=== PATIENT | male | born 1950 | race Caucasian/White ===

== ENCOUNTER → 2023-02-24 09:54 | Outpatient (BNVA) | payer MEDICAID, SELFPAY | PROVIDERS: Visit Provider Nurse Practitioner Family | DX: M10.9 Gout, unspecified (principal); I10 Essential (primary) hypertension; E78.2 Mixed hyperlipidemia; Z12.5 Encounter for screening for malignant neoplasm of prostate; N40.0 Benign prostatic hyperplasia without lower urinary tract symptoms; E55.9 Vitamin D deficiency, unspecified | CPT/HCPCS: 80053; 80061; 82306; 84443; 84550; G0103 ==

== ENCOUNTER 2023-04-19 14:39 | Outpatient (CLI) | payer MEDICARE, MEDICAID, SELFPAY ==
--- NOTE | 2023-04-19 15:00 | CT_ITS ---
WS: [id number] CT ANGIOGRAPHY OF THE ABDOMINAL AORTA WITH RUNOFF TO THE ANKLES HISTORY: PVD with claudication TECHNIQUE: Arterial injection is performed during imaging to evaluate the aorta and runoff vessels to the ankles. MIP and volume rendering imaging has also been performed. All images are reviewed. All C T scans at [facility] use at least one of these dose optimization techniques: automated exposu re control; mA and/or kV adjustment per patient size (includes targeted exams where dose is matched t o clinical indication); or iterative reconstruction. Contrast: Omnipaque 350; 100 mL IV. DLP: 566.28 mGy.cm COMPARISON: None available. Abdominal aorta: Moderate atherosclerotic plaque. Calcified plaque and areas of intimal thickening. N o aneurysm. 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 Mild narrowing and plaque origin SMA. Mild a therosclerotic plaque renal arteries. Single accessory renal artery on the RIGHT. RIGHT lower extremity arterial system: Extensive calcified plaque continues into the common iliac art prachi. 50% stenosis proximal common iliac artery. Bifurcation is intact. Heavy calcification continues into the internal and external iliac arteries. Deep profunda is intact. Multifocal areas of calcified plaque throughout the femoral artery to the popliteal artery. At the knee the popliteal artery is ob scured by the knee prosthesis beam hardening artifact. Most significant stenosis in the proximal SFA near 50%. At the knee below the prosthesis the popliteal artery is patent. There is mild scattered pl aque throughout the arteries below the knee. The lumen of the arteries below the knee appears patent. There is good runoff to the ankle. LEFT lower extremity arterial system: Moderate calcification at the origin of the common iliac artery . Internal and external iliac arteries are intact. Femoral artery bifurcation is patent. Mild atheros clerotic plaque in the deep profunda. Mild atherosclerotic plaque within the SFA. Calcified plaque an d mild intimal thickening throughout its course. Slightly greater amount of plaque near Justice's michelle l. Stenosis less than 50%. Mild atherosclerosis popliteal artery. Tibioperoneal trunk is intact. Smal l caliber posterior tibial artery but it is patent. Good runoff to the ankle via 3 vessels. Severe chronic emphysema. Normal size heart. Early arterial phase imaging through the upper abdomen d emonstrates no abnormality. Mixing of contrast in the portal vein. Prior cholecystectomy. No renal ma ss or obstruction. No GI tract obstruction. Extensive diverticular burden throughout the distal colon . These degenerative changes throughout the lumbar spine. L4 anterolisthesis by [address]/CT angio abd aorta runof [id number] IMPRESSION: 1. Moderate atherosclerotic plaque throughout the abdominal aorta. No occlusio n or aneurysm. 2. 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 3. Extensive plaque bilaterally throughout the iliac arteries but no occlusion . 4. Proximal RIGHT common iliac artery stenosis 50%. 5. Proximal RIGHT SFA 50% stenosis. 6. LEFT femoral artery stenosis less than 50%. 7. Good runoff to the ankles bilaterally. Anterior and posterior tibial arteri es and peroneal artery intact. Small caliber LEFT CASTING CARRIER. 8. Chronic emphysema. 9. Extensive diverticular disease in the distal colon without acute diverticul itis.
[2023-04-19 15:18] LABS: Blood Urea Nitrogen 22 mg/dL (8-23)
[2023-04-19] MEDS: iohexol 350 mg/mL 500 mL Btl (per mL) IV (15:31)
--- NOTE | 2023-04-19 16:45 | USCV_ITS ---
Cachorro Tobias Age: 72 Gender: M : 1950 Exam Date: 04/19/2023 15:53 Ordering Phys: Mayra Landrum NP Technologist: Jag Barajas [place] [facility] [place]: near syncope, carotid stenosis Risk Factors: Previous Vascular Surgery: Right Brachial BP: / Left Brachial BP: / Right Left Velocity (cm/s) Spectral Plaque Velocity (cm/s) Spectral Plaque Syst/Diast Broadening Syst/Diast Broadening 95.90/ 14.30 Prox CCA 78.20 / 12.30 87.10/ 16.50 Mid CCA 80.80 / 17.90 84.90/ 23.20 Distal CCA 70.30 / 11.20 72.10/ 10.70 Prox ICA 42.70 / 14.40 94.80/ 20.50 Mid ICA 82.30 / 17.10 63.30/ 18.50 Distal ICA 52.80 / 17.30 251.90 ECA 195.80 1.09 ICA/CCA 1.02 Antegrade Vertebral Antegrade 34.70/ 9.60 cm/s 64.90/ 15.10 cm/s Tri Subclavian Bi 119.1 71.60 0 CONCLUSIONS Right ICA stenosis <50%. Mild atheromatous plaque right carotid bulb/ICA. Left ICA stenosis <50%. Mild atheromatous plaque left carotid bulb/ICA. Normal antegrade Doppler flow noted in the right vertebral artery. Normal antegrade Doppler flow noted in the left vertebral artery. David Seals MD (Electronically Signed) Final Date: 19 April 2023 16:37 S
== END 2023-04-19 14:40 | disposition home or self-care (01) ==
LOC: RAD 14:47
PROVIDERS: PCP Nurse Practitioner Family; Visit Provider Nurse Practitioner Family
DX: I65.23 Occlusion and stenosis of bilateral carotid arteries (principal); I70.0 Atherosclerosis of aorta; I70.213 Atherosclerosis of native arteries of extremities with intermittent claudication, bilateral legs; I70.8 Atherosclerosis of other arteries; J43.9 Emphysema, unspecified; K57.30 Diverticulosis of large intestine without perforation or abscess without bleeding
CPT/HCPCS: 75635; 80053; 80061; 82306; 82565; 84443; 84520; 84550; 93880; G0103; Q9967

== ENCOUNTER 2023-05-17 09:41 | Outpatient (CLI) | payer MEDICARE, MEDICAID, SELFPAY ==
--- NOTE | 2023-05-17 09:45 | US_ITS ---
WS: [id number] Exam: US soft tissue/extremity [id number] Date/Time of Exam: 05/17/2023 10:42 AM Reason For Exam: marble size lump left thigh The lateral left thigh region is targeted for ultrasound evaluation. A mildly hyperechoic ovoid area within the musculature noted along the lateral left thigh region. Thi s measures approximately 2 x 0.65 cm. There are 2 tiny cystic structures within both less than a cent imeter. There were no other discrete soft tissue mass is identified. Recommendations: If the patient does not respond to conservative management or this area begins to en large then contrast CT scanning of this area should be considered for more definitive evaluation. US/US soft tissue/extremity [id number] IMPRESSION: 1. Mildly hyperechoic ovoid area within the musculature noted along the lateral left thigh region. This area measures about 2 x 0.65 cm and contains 2 tiny cy stic areas. This may represent a contusion or hematoma of the musculature.
== END 2023-05-17 09:42 | disposition home or self-care (01) ==
PROVIDERS: PCP Nurse Practitioner Family; Visit Provider Nurse Practitioner Family
DX: R22.42 Localized swelling, mass and lump, left lower limb (principal)
CPT/HCPCS: 76882

== ENCOUNTER → 2023-05-25 15:07 | Outpatient (BNVA) | payer MEDICARE, MEDICAID, SELFPAY | PROVIDERS: PCP Nurse Practitioner Family; Visit Provider Internal Medicine Cardiovascular Disease | DX: R07.9 Chest pain, unspecified (principal); I45.10 Unspecified right bundle-branch block; I73.9 Peripheral vascular disease, unspecified; I25.10 Atherosclerotic heart disease of native coronary artery without angina pectoris; Z95.5 Presence of coronary angioplasty implant and graft; I10 Essential (primary) hypertension; Z87.891 Personal history of nicotine dependence; E78.2 Mixed hyperlipidemia | CPT/HCPCS: 93005; 99204 ==

== ENCOUNTER 2023-07-29 13:18 | Outpatient (CLI) | payer MEDICARE, MEDICAID, SELFPAY ==
--- NOTE | 2023-07-29 13:28 | XR_ITS ---
WS: [id number] Sacroiliac joints, 3 views, 07/29/2023 Clinical Data: pain low back left hip sciatica Comparison: None. Findings: The SI joints are normal in width. No erosion, sclerosis or destruction is seen. There are no fractur es or dislocations. The adjacent visualized pelvis and hips are unremarkable. Impression: Negative SI joints.
--- NOTE | 2023-07-29 13:28 | XR_ITS ---
WS: [id number] Left hip, AP and frog-leg views, 07/29/2023 Clinical Data: pain low back left hip sciatica Comparison: None. Findings: No fractures or dislocations are seen. The left hip shows no narrowing, erosion, sclerosis or fragmen tation of the left femoral head. The soft tissues are not remarkable. The adjacent pelvis is normal. Vascular calcification is seen. Impression: Negative left hip. Tonnis classification: grade 0: normal radiographs
--- NOTE | 2023-07-29 13:28 | XR_ITS ---
WS: [id number] Lumbar spine, 3 views, 07/29/2023 Clinical Data: pain low back left hip sciatica Comparison: None. Findings: No compression fractures or subluxation is seen. Degenerative disc narrowing is seen at all lumbar le vels along with abundant osteoarthritis. There is a slight dextroscoliosis. Transverse processes and SI joints are normal. There is calcification in the wall of the abdominal aorta but no aneurysm Impression: 1. Multilevel degenerative disc narrowing and osteoarthritis. 2. Slight dextroscoliosis.
== END 2023-07-29 13:19 | disposition home or self-care (01) ==
PROVIDERS: Visit Provider Nurse Practitioner Family
DX: M54.42 Lumbago with sciatica, left side (principal); M51.36 Other intervertebral disc degeneration, lumbar region; M41.86 Other forms of scoliosis, lumbar region
CPT/HCPCS: 72100; 72202; 73502

== ENCOUNTER 2023-07-30 06:00 | Outpatient (RCR) | payer MEDICARE, MEDICAID, SELFPAY | END 2023-07-31 23:59 | disposition home or self-care (01) | LOC: TPT 06:00 | PROVIDERS: Visit Provider Nurse Practitioner Family | DX: M54.42 Lumbago with sciatica, left side (principal) | CPT/HCPCS: 97162 ==

== ENCOUNTER 2023-08-01 06:00 | Outpatient (RCR) | payer MEDICARE, MEDICAID, SELFPAY | END 2023-08-31 23:59 | disposition home or self-care (01) | LOC: TPT 06:00 | PROVIDERS: Visit Provider Nurse Practitioner Family | DX: M54.42 Lumbago with sciatica, left side (principal) | CPT/HCPCS: 97110 ==

== ENCOUNTER → 2023-08-25 13:03 | Outpatient (BNVA) | payer MEDICARE, MEDICAID, SELFPAY | PROVIDERS: Visit Provider Nurse Practitioner Family | DX: I10 Essential (primary) hypertension; E78.2 Mixed hyperlipidemia; G62.9 Polyneuropathy, unspecified | CPT/HCPCS: 80053; 80061 ==

== ENCOUNTER → 2023-09-08 11:50 | Outpatient (BNVA) | payer MEDICARE, MEDICAID, SELFPAY | PROVIDERS: Visit Provider Internal Medicine Cardiovascular Disease | DX: N40.0 Benign prostatic hyperplasia without lower urinary tract symptoms (principal); R07.9 Chest pain, unspecified; I45.10 Unspecified right bundle-branch block; I25.118 Atherosclerotic heart disease of native coronary artery with other forms of angina pectoris; I73.9 Peripheral vascular disease, unspecified; I77.9 Disorder of arteries and arterioles, unspecified; E78.2 Mixed hyperlipidemia; Z87.891 Personal history of nicotine dependence | CPT/HCPCS: 93005; 99214 ==

== ENCOUNTER 2023-10-05 08:46 | Outpatient (CLI) | payer MEDICARE, MEDICAID, SELFPAY ==
[2023-10-05 09:02] VITALS: BMI 25.0
--- NOTE | 2023-10-05 09:02 | ECG_ITS ---
[facility] Test Date: 2023-10-05 Pat Name: Cachorro Tobias Department: Room: Gender: Male Planisher: Terence Gray : 1950 Requested By: Gregor Cano Order Number: [id number] Steph MD: Gregor Cano M.D. Interpretive Statements NAME OF STUDY: LEXISCAN SESTAMIBI STRESS TEST INDICATION: Chest Pain PROCEDURE: At the baseline, the EKG revealed normal sinus rhythm with a right bundle branch block. The baseline heart was 64 bpm with a blood pressue of 202/87 mm of Hg Lexiscan was infused over a period of 20 seconds. A total of 0.4 milligrams of Lexiscan was infused. The stress phase was continued for a total of 5 minutes. Heart rate at the end of the stress phase was 70 bpm with a blood pressure 190/83 mm of Hg. The EKG at the peak infusion revealed no significant changes. Sestamibi was injected 20 seconds after the Lexiscan infusion. Heart rate at the end of the recovery phase was 69 bpm with a blood pressure of 164/80 mm of Hg. CONCLUSION: 1. No significant EKG changes with the LexiScan infusion 2. No LexiScan induced chest pain or cardiac arrhythmia 3. Normal blood pressure and heart rate response 4. Sestamibi/sestamibi perfusion scan pending; see separate report. Electronically Signed On 10-14-2023 14:05:02 ELECTRICAL MANUFA[employer]URING ENGINEER by Gregor Cano M.D. [email or web address]
--- NOTE | 2023-10-05 09:03 | NMCV_ITS ---
NM fabian perf SPECT r/s* [id number] Jatinder Cachorro Age: 73 Gender: M : 1950 Exam Date: 10/05/2023 09:57 Ordering Phys: Gregor Cano MD ([email or web address]) Technologist: EARNESTINE Temple Exam Location: [facility] Indications: CHEST PAIN STRESS TEST [facility] IMAGE PROTOCOL Rest/Stress 1 Lexiscan Day Radiopharmaceutical Dose (mCi) Administration Site Administered by Rest: Tc-99m 11.0 IV EARNESTINE Temple Sestamibi Stress:Tc-99m 32.7 IV EARNESTINE Vigil Sestamibi Rest: 05-Oct-2023 60 Discovery 630 Stress: 05-Oct-2023 30 Discovery 630 0.4mg Lexiscan. Images obtained in supine and prone position. SPECT RESULTS Technical Quality: Excellent Raw Data Analysis: Normal Image Corrections: No attenuation or motion correction applied Summed Stress Score: 0 Summed Rest Score: 1 Summed Difference Score: 0 PERFUSION FINDINGS A small area of slightly decreased tracer uptake was noted at the anteroseptal region, with the supine imaging. However with the prone imaging, there is uniform tracer uptake.. FUNCTIONAL RESULTS (calculated via Gated SPECT) Stress Image LV EF (%): 67 Stress EDV (mL):86 TID: 0.74 Stress ESV (mL):28 FUNCTIONAL FINDINGS: Segmental wall motion analysis revealing no gross wall motion abnormalities IMPRESSIONS 1. Unremarkable Myocardial perfusion imaging 2. Normal LV ejection fraction of 67% 3. LV wall motion analysis revealing no gross wall motion abnormalities. 4. Normal LV volume. Low probability for coronary ischemia, based on the above findings Dr Gregor Cano MD [facility] (Electronically Signed) Final Date: 06 October 2023 08:47 S
[2023-10-05 11:11] VITALS: BP 164/86; PULSE 73
== END 2023-10-05 08:47 | disposition home or self-care (01) ==
LOC: CDL 08:47
PROVIDERS: Visit Provider Internal Medicine Cardiovascular Disease
DX: R07.89 Other chest pain (principal)
CPT/HCPCS: 36415; 78452; 93017; 96374; A9500

== ENCOUNTER → 2023-11-11 08:43 | Outpatient (BNVA) | payer MEDICARE, MEDICAID, SELFPAY | PROVIDERS: Referring Provider Family Medicine; Visit Provider Anesthesiology Pain Medicine | DX: M51.16 Intervertebral disc disorders with radiculopathy, lumbar region | CPT/HCPCS: 99204 ==

== ENCOUNTER → 2023-11-24 10:44 | Outpatient (BNVA) | payer MEDICARE, MEDICAID, SELFPAY | PROVIDERS: Visit Provider Nurse Practitioner Family | DX: I10 Essential (primary) hypertension (principal); E78.2 Mixed hyperlipidemia; J43.9 Emphysema, unspecified; I25.10 Atherosclerotic heart disease of native coronary artery without angina pectoris; Z95.5 Presence of coronary angioplasty implant and graft; E55.9 Vitamin D deficiency, unspecified; I73.9 Peripheral vascular disease, unspecified; G62.9 Polyneuropathy, unspecified; M54.42 Lumbago with sciatica, left side; J32.0 Chronic maxillary sinusitis; J44.1 Chronic obstructive pulmonary disease with (acute) exacerbation; N40.0 Benign prostatic hyperplasia without lower urinary tract symptoms; R06.02 Shortness of breath | CPT/HCPCS: 80053; 80061; 87486; 87581; 87633 ==

== ENCOUNTER → 2023-11-25 13:31 | Outpatient (BNVA) | payer MEDICARE, MEDICAID, SELFPAY | PROVIDERS: Visit Provider Anesthesiology Pain Medicine | DX: M54.16 Radiculopathy, lumbar region (principal) | CPT/HCPCS: 64483; 64484; J1100; J3490 ==

== ENCOUNTER → 2023-12-09 13:08 | Outpatient (BNVA) | payer MEDICARE, MEDICAID, SELFPAY | PROVIDERS: Visit Provider Anesthesiology Pain Medicine | DX: M54.16 Radiculopathy, lumbar region (principal); M54.42 Lumbago with sciatica, left side | CPT/HCPCS: 64483; 64484 ==

== ENCOUNTER 2023-12-10 09:16 | Outpatient (CLI) | payer MEDICARE, MEDICAID, SELFPAY ==
--- NOTE | 2023-12-10 09:30 | MR_ITS ---
WS: [id number] MRI LUMBAR SPINE NONCONTRAST HISTORY: M54.16 - Radiculopathy, lumbar region COMPARISON: None available. TECHNIQUE: Sagittal and axial multisequence imaging is submitted. Advanced degenerative spondylitic changes in the cervical spine. There is a component of central sten osis from C3-4 through C5-6. Disc bases are narrowed. There are a few small bulging disc throughout t he thoracic spine. Moderate disc space narrowing and desiccation and osteophytosis throughout the lumbar spine. L4 anter olisthesis by 2.5 mm. Reactive marrow edema along the endplates of L4 and L5. No fractures. Conus terminates normally at L1. L1-L2: Moderate annular disc bulging, osteophytic ridging and mild facet arthritis. Disc encroachment upon the subarticular recesses. Mild central with moderate bilateral subarticular recess stenosis. M oderate RIGHT foraminal stenosis. L2-L3: Diffuse annular disc bulging and osteophytic ridging. Ligamentum flavum and facet arthritis. S ignificant disc encroachment upon the central canal and the subarticular recesses. Severe central, bi lateral subarticular recess and moderate LEFT foraminal stenosis. Mild RIGHT foraminal stenosis. L3-L4: Severe disc bulging, osteophytosis and facet arthritis. Marked ligamentum flavum arthritis. Th ere is severe central, bilateral subarticular recess and moderate foraminal stenosis, RIGHT greater t fisher LEFT. L4-L5: Diffuse annular disc bulging with osteophytic ridging and severe facet and ligamentum flavum a rthritis. Severe central, bilateral subarticular recess and RIGHT foraminal stenosis. Mild LEFT nicky inal stenosis. L5-S1: Diffuse annular disc bulging with osteophytic ridging. Severe facet and ligamentum flavum arth ritis. Encroachment upon the ventral thecal sac and foramina. There is disc contacting the S1 nerve r oots, RIGHT greater than LEFT. Moderate to severe bilateral foraminal stenosis. Paravertebral soft tissues are normal. IMPRESSION: 1. Advanced multilevel facet joint arthritis and spondylosis throughout the lumbar spine. 2. L2-3: Severe central, bilateral subarticular recess and moderate LEFT foraminal stenosis. There i s significant disc contact on the traversing L3 nerve roots. 3. L3-4: Severe central, bilateral subarticular recess and moderate foraminal stenosis with disc con tact on the exiting and traversing nerve roots. 4. L4-5: Severe central, bilateral subarticular recess and RIGHT foraminal stenosis. Significant dis c contact on the traversing L5 nerve roots and on the exiting RIGHT L4 nerve root. 5. L5-S1: Moderate central, bilateral subarticular recess and moderate to severe foraminal stenosis. There is significant disc contact on the S1 nerve roots, RIGHT greater than LEFT and also the exitin g L5 nerve roots. 6. Advanced facet joint arthritis and ligamentum flavum arthritis throughout the lumbar spine. 7. L1-2: Mild central with moderate bilateral subarticular recess and RIGHT foraminal stenosis.
== END 2023-12-10 09:17 | disposition home or self-care (01) ==
LOC: RAD 09:18
PROVIDERS: Visit Provider Anesthesiology Pain Medicine
DX: M47.26 Other spondylosis with radiculopathy, lumbar region (principal); M48.061 Spinal stenosis, lumbar region without neurogenic claudication; M48.07 Spinal stenosis, lumbosacral region
CPT/HCPCS: 72148

== ENCOUNTER 2023-12-23 15:07 | Outpatient (CLI) | payer MEDICARE, MEDICAID, SELFPAY ==
--- NOTE | 2023-12-23 15:30 | US_ITS ---
WS: [id number] Complete ABDOMINAL ULTRASOUND HISTORY: RUQ abd pain COMPARISON: None available. Liver: 15.0 cm in length. Normal size liver and echogenicity. No bile duct dilatation or mass. Portal Vein: Normal hepatopetal flow with monophasic waveform. Gallbladder: Prior cholecystectomy. CBD: 0.5 cm Pancreas: Poorly visualized. Right kidney: 9.3 cm x 4.7 x 4.6 cm. Cortex:5.9 cm. Normal size and echogenicity. No hydronephrosis or mass. Left kidney: 9.2 cm x 5.2 cm x 6.3 cm. Cortex: 1.2 cm. Normal size and echogenicity. No hydronephrosis or mass. Spleen: 10.0 cm. Normal. Aorta and IVC: Unremarkable abdominal aorta and IVC. Impression: 1. Prior cholecystectomy. 2. Unremarkable liver. No masses. 3. No bile duct dilatation. 4. No hydronephrosis.
== END 2023-12-23 15:08 | disposition home or self-care (01) ==
LOC: RAD 15:07
PROVIDERS: Visit Provider Nurse Practitioner Family
DX: R10.11 Right upper quadrant pain (principal)
CPT/HCPCS: 76700; 99204

== ENCOUNTER → 2024-01-05 09:19 | Outpatient (BNVA) | payer MEDICARE, MEDICAID, SELFPAY | PROVIDERS: Visit Provider Anesthesiology Pain Medicine | DX: M48.062 Spinal stenosis, lumbar region with neurogenic claudication (principal); M51.16 Intervertebral disc disorders with radiculopathy, lumbar region | CPT/HCPCS: 99214 ==

== ENCOUNTER → 2024-01-13 10:52 | Outpatient (BNVA) | payer MEDICARE, MEDICAID, SELFPAY | PROVIDERS: PCP Nurse Practitioner Family; Visit Provider Internal Medicine Cardiovascular Disease | DX: I25.10 Atherosclerotic heart disease of native coronary artery without angina pectoris (principal); I10 Essential (primary) hypertension; E78.2 Mixed hyperlipidemia; I73.9 Peripheral vascular disease, unspecified; I65.23 Occlusion and stenosis of bilateral carotid arteries; Z87.891 Personal history of nicotine dependence | CPT/HCPCS: 99214 ==

== ENCOUNTER → 2024-02-02 10:32 | Outpatient (BNVA) | payer MEDICARE, MEDICAID, SELFPAY | PROVIDERS: PCP Nurse Practitioner Family; Visit Provider Anesthesiology Pain Medicine | DX: M48.062 Spinal stenosis, lumbar region with neurogenic claudication (principal); M51.16 Intervertebral disc disorders with radiculopathy, lumbar region | CPT/HCPCS: 99214 ==

== ENCOUNTER → 2024-02-16 09:19 | Outpatient (BNVA) | payer MEDICARE, MEDICAID, SELFPAY | PROVIDERS: PCP Nurse Practitioner Family; Visit Provider Nurse Practitioner Family | DX: G62.9 Polyneuropathy, unspecified (principal); M54.9 Dorsalgia, unspecified; G89.29 Other chronic pain; I10 Essential (primary) hypertension; E78.2 Mixed hyperlipidemia | CPT/HCPCS: 80053; 80061; 85025 ==

== ENCOUNTER → 2024-04-12 10:40 | Outpatient (BNVA) | payer MEDICARE, MEDICAID, SELFPAY | PROVIDERS: PCP Nurse Practitioner Family; Visit Provider Anesthesiology Pain Medicine | DX: G89.29 Other chronic pain; M48.062 Spinal stenosis, lumbar region with neurogenic claudication; M51.16 Intervertebral disc disorders with radiculopathy, lumbar region | CPT/HCPCS: 99214 ==

== ENCOUNTER 2024-05-17 12:05 | Outpatient (CLI) | payer MEDICARE, MEDICAID, SELFPAY ==
--- NOTE | 2024-05-17 12:09 | XRR_ITS ---
PROCEDURE INFORMATION: Exam: XR Right Shoulder Exam date and time: 05/17/2024 12:19 PM Age: 73 years old Clinical indication: Right; Patient HX: R posterior shoulder pain; Additional info: Right shoulder pain TECHNIQUE: Imaging protocol: Radiologic exam of the right shoulder. Views: 2 or more views. COMPARISON: CR XR chest 2V* [id number] 05/17/2024 12:19 PM FINDINGS: Bones/joints: Marked narrowing of the right glenohumeral joint space with subchondral sclerosis and significant osteophyte formation. There is narrowing of the acromiohumeral interval. No acute fracture or subluxation. Soft tissues: Normal. XR/XR shoulder RT min 2V* [id number] IMPRESSION: 1. No acute fracture or subluxation. 2. Severe osteoarthritis of the right shoulder.
--- NOTE | 2024-05-17 12:09 | XRR_ITS ---
PROCEDURE INFORMATION: Exam: XR Chest Exam date and time: 05/17/2024 12:19 PM Age: 73 years old Clinical indication: Condition or disease; Lung condition and disease; Copd; Complications not specified TECHNIQUE: Imaging protocol: Radiologic exam of the chest. Views: 2 views. COMPARISON: CR XR shoulder RT min 2V* [id number] 05/17/2024 12:19 PM FINDINGS: Lungs: Curvilinear bilateral opacities which can be seen with emphysematous lung changes. Pleural spaces: No pneumothorax, pleural effusion. Heart/Mediastinum: Coronary artery calcifications. Bones/joints: Bilateral narrowing of the glenohumeral joints with subchondral sclerosis and osteophyte formation. Chronic multilevel degenerative changes of the thoracic vertebrae. XR/XR chest 2V* [id number] IMPRESSION: 1. No focal lung consolidations. 2. Emphysematous lung changes.
== END 2024-05-17 12:06 | disposition home or self-care (01) ==
LOC: RAD 12:06
PROVIDERS: PCP Nurse Practitioner Family; Visit Provider Nurse Practitioner Family
DX: J44.1 Chronic obstructive pulmonary disease with (acute) exacerbation (principal); J43.9 Emphysema, unspecified; M25.511 Pain in right shoulder; M19.011 Primary osteoarthritis, right shoulder; M51.34 Other intervertebral disc degeneration, thoracic region
CPT/HCPCS: 71046; 73030

== ENCOUNTER → 2024-07-05 14:27 | Outpatient (BNVA) | payer MEDICARE, MEDICAID, SELFPAY | PROVIDERS: PCP Nurse Practitioner Family; Visit Provider Nurse Practitioner Family | DX: Z12.5 Encounter for screening for malignant neoplasm of prostate (principal); I10 Essential (primary) hypertension; E55.9 Vitamin D deficiency, unspecified; E78.2 Mixed hyperlipidemia | CPT/HCPCS: 80053; 80061; 82306; 85025; G0103 ==

== ENCOUNTER → 2024-07-19 10:11 | Outpatient (BNVA) | payer MEDICARE, MEDICAID, SELFPAY | PROVIDERS: PCP Nurse Practitioner Family; Visit Provider Nurse Practitioner Family | DX: E78.2 Mixed hyperlipidemia (principal); I10 Essential (primary) hypertension; I65.23 Occlusion and stenosis of bilateral carotid arteries; I73.9 Peripheral vascular disease, unspecified; I25.10 Atherosclerotic heart disease of native coronary artery without angina pectoris; Z87.891 Personal history of nicotine dependence | CPT/HCPCS: 99214 ==

== ENCOUNTER → 2024-09-13 13:40 | Outpatient (BNVA) | payer MEDICARE, MEDICAID, SELFPAY | PROVIDERS: PCP Nurse Practitioner Family; Visit Provider Specialist | DX: M19.011 Primary osteoarthritis, right shoulder (principal); M25.571 Pain in right ankle and joints of right foot; M25.511 Pain in right shoulder | CPT/HCPCS: 20610; 73030; 73610; 99204; J1100; J2795; J3301 ==

== ENCOUNTER → 2024-11-27 15:48 | Outpatient (BNVA) | payer MEDICARE, MEDICAID, SELFPAY | PROVIDERS: PCP Nurse Practitioner Family; Visit Provider Nurse Practitioner Family | DX: I10 Essential (primary) hypertension (principal) | CPT/HCPCS: 80053; 80061; 84443; 85025 ==

== ENCOUNTER → 2024-12-13 12:25 | Outpatient (BNVA) | payer MEDICARE, MEDICAID, SELFPAY | PROVIDERS: Family Provider Nurse Practitioner Family; PCP Nurse Practitioner Family; Visit Provider Nurse Practitioner Family | DX: I10 Essential (primary) hypertension (principal); R07.89 Other chest pain; M79.89 Other specified soft tissue disorders | CPT/HCPCS: 80053; 83880; 85025 ==

== ENCOUNTER → 2025-01-24 10:54 | Outpatient (BNVA) | payer MEDICARE, MEDICAID, SELFPAY | PROVIDERS: Family Provider Nurse Practitioner Family; PCP Nurse Practitioner Family; Visit Provider Internal Medicine Cardiovascular Disease | DX: R07.9 Chest pain, unspecified (principal); R00.1 Bradycardia, unspecified; I45.10 Unspecified right bundle-branch block; I44.4 Left anterior fascicular block; I21.9 Acute myocardial infarction, unspecified | CPT/HCPCS: 93005; 99214 ==

== ENCOUNTER → 2025-05-10 14:00 | Outpatient (BNVA) | payer MEDICARE, MEDICAID, SELFPAY | PROVIDERS: Family Provider Nurse Practitioner Family; PCP Nurse Practitioner Family; Visit Provider Nurse Practitioner Family | DX: I10 Essential (primary) hypertension (principal) | CPT/HCPCS: 80053; 80061; 84443; 85025 ==

== ENCOUNTER → 2025-05-28 15:14 | Outpatient (BNVA) | payer MEDICARE, MEDICAID, SELFPAY | PROVIDERS: Family Provider Nurse Practitioner Family; PCP Nurse Practitioner Family; Visit Provider Anesthesiology Pain Medicine | DX: M54.9 Dorsalgia, unspecified (principal); G89.29 Other chronic pain; M48.062 Spinal stenosis, lumbar region with neurogenic claudication; M51.16 Intervertebral disc disorders with radiculopathy, lumbar region | CPT/HCPCS: 99214 ==

== ENCOUNTER → 2025-10-05 10:51 | Outpatient (BNVA) | payer MEDICARE, MEDICAID, SELFPAY | PROVIDERS: Family Provider Nurse Practitioner Family; PCP Nurse Practitioner Family; Visit Provider Nurse Practitioner Family | DX: I25.10 Atherosclerotic heart disease of native coronary artery without angina pectoris (principal); I10 Essential (primary) hypertension; I73.9 Peripheral vascular disease, unspecified; E78.2 Mixed hyperlipidemia; M54.30 Sciatica, unspecified side; Z95.5 Presence of coronary angioplasty implant and graft; Z87.891 Personal history of nicotine dependence | CPT/HCPCS: 99214 ==